=== PATIENT | male | born 1955 | race Caucasian/White ===

== ENCOUNTER → 2017-04-25 | Outpatient (CLI) | payer OTHER ==
[~2017-04-25] MED LIST: ASPI-496 PO; ASPI-621 PO; FURO-93 PO; FURO80TA3 PO; HYDR-3241 PO; LISI1TAB5 PO; MELO15TA24 PO; METO25TA35 PO; NIAC500T35 PO; OMEP-110 PO; POTA20PA25 PO; POTA20TA6 PO; PRAV40TA2 PO; STATIN; TEST30SO PO
== END | disposition home or self-care (01) ==
LOC: CVU 09:54
PROVIDERS: ATTEND Internal Medicine Cardiovascular Disease
DX: I87.2 Venous insufficiency (chronic) (peripheral) (principal); L03.116 Cellulitis of left lower limb; L03.115 Cellulitis of right lower limb; L81.9 Disorder of pigmentation, unspecified
CPT/HCPCS: 93970

== ENCOUNTER 2017-08-18 07:14 | Day surgery (SDC) | payer OTHER ==
[~2017-08-18] VITALS: Ht 177.8 cm; Wt 122.7 kg
[~2017-08-18 07:14] MED LIST changes: +LIDOCAINE/MPF 2%-EPI 1:200K, 20 ML ONE
[2017-08-18 07:34] VITALS: BP 142/71
== END 2017-08-18 09:26 | disposition home or self-care (01) ==
LOC: CACL 07:14
PROVIDERS: ATTEND Internal Medicine Cardiovascular Disease
DX: I83.12 Varicose veins of left lower extremity with inflammation (principal); E78.2 Mixed hyperlipidemia; I10 Essential (primary) hypertension; E66.9 Obesity, unspecified; G47.33 Obstructive sleep apnea (adult) (pediatric); Z88.0 Allergy status to penicillin; Z91.018 Allergy to other foods
CPT/HCPCS: 36482; C1894; J3490

== ENCOUNTER → 2017-08-20 | Outpatient (CLI) | payer OTHER ==
[~2017-08-20] MED LIST changes: -LIDOCAINE/MPF 2%-EPI 1:200K, 20 ML ONE
== END ==
LOC: CVU 08:17
PROVIDERS: ATTEND Internal Medicine Cardiovascular Disease
DX: I87.2 Venous insufficiency (chronic) (peripheral) (principal); Z98.890 Other specified postprocedural states
CPT/HCPCS: 93971

== ENCOUNTER → 2018-01-16 | Outpatient (CLI) | payer OTHER | END | disposition home or self-care (01) | LOC: CVU 12:50 | PROVIDERS: ATTEND Physician Assistant | DX: I10 Essential (primary) hypertension (principal); G47.30 Sleep apnea, unspecified; Z88.1 Allergy status to other antibiotic agents; Z88.5 Allergy status to narcotic agent | CPT/HCPCS: 93306 ==

== ENCOUNTER 2019-05-14 14:15 | Outpatient (CLI) | payer OTHER ==
[~2019-05-14 14:15] MED LIST changes: -ASPI-621 PO; +ASPI81TA45 PO; +LISI1TAB19 PO; -LISI1TAB5 PO
[2019-05-14] MEDS ORDERED: TAMS-11 PO (14:56)
[2019-05-14] MEDS ORDERED: PRAV40TA2 PO (14:56)
[2019-05-14] MEDS ORDERED: FLUO20CA19 PO (14:56)
[2019-05-14] MEDS ORDERED: LISI1TAB20 PO (14:56)
[2019-05-14 15:37] LABS: ALANINE AMINOTRANSFERASE 48 U/L (12-78); ALBUMIN 4.2 g/dL (3.4-5.0); ANION GAP 7 mmol/L (5-15); CALCIUM 9.2 mg/dL (8.5-10.1); CHLORIDE 101 mmol/L (98-107)
[2019-05-14 15:40] LABS: ALKALINE PHOSPHATASE 26 U/L (45-117); BILIRUBIN,TOTAL 0.8 mg/dL (0.2-1.0); CREATININE 1.24 mg/dL (0.7-1.3); TOTAL PROTEIN 7.3 g/dL (6.4-8.2)
== END 2019-05-14 23:59 | disposition home or self-care (01) ==
LOC: STAR 14:15
PROVIDERS: ATTEND Surgery
DX: Z01.818 Encounter for other preprocedural examination (principal); K42.9 Umbilical hernia without obstruction or gangrene; I44.0 Atrioventricular block, first degree; Z88.0 Allergy status to penicillin
CPT/HCPCS: 36415; 80053; 93005

== ENCOUNTER 2019-05-18 10:53 | Day surgery (SDC) | payer OTHER ==
[~2019-05-18] VITALS: Ht 177.8 cm; Wt 123.0 kg
[~2019-05-18 10:53] MED LIST changes: +BUPIVACAINE/PF 0.5% ONE; +FLUO20CA19 PO; +LISI1TAB20 PO; +TAMS-11 PO
[2019-05-18] MEDS ORDERED: MIDAZOLAM 1 MG/ML, 2ML ONE (11:03)
[2019-05-18] MEDS ORDERED: FENTANYL PF 250 MCG/5ML ONE (11:03)
[2019-05-18 11:14] VITALS: BP 138/83
[2019-05-18] MEDS ORDERED: LACTATED RINGERS 1,000 ML IV SCH (11:20)
[2019-05-18] MEDS ORDERED: ACETAMINOPHEN 500 MG TABLET ONE (11:21)
[2019-05-18] MEDS ORDERED: GABAPENTIN 300 MG CAPSULE ONE (11:21)
[2019-05-18] MEDS ORDERED: GABAPENTIN 300 MG CAPSULE PO ONE ×2 (11:30)
[2019-05-18] MEDS ORDERED: ACETAMINOPHEN 500 MG TABLET PO ONE ×2 (11:30)
[2019-05-18] MEDS ORDERED: LIDOCAINE 2% 100MG/5ML SYRINGE ONE (11:57)
[2019-05-18] MEDS ORDERED: KETOROLAC 30 MG/1 ML ONE (11:57)
[2019-05-18] MEDS ORDERED: ONDANSETRON 2MG/ML, 2ML ONE (12:33)
[2019-05-18] MEDS ORDERED: PROPOFOL 10 MG/ML, 20ML ONE (12:33)
[2019-05-18] MEDS ORDERED: DEXAMETHASONE 4 MG/ML, 1ML ONE (12:33)
[2019-05-18] MEDS ORDERED: ROCURONIUM 10MG/ML,5ML ONE (12:33)
[2019-05-18] MEDS ORDERED: CEFAZOLIN 1,000 MG ONE (12:33)
[2019-05-18] MEDS ORDERED: NEOSTIGMINE 1 MG/ML, 10ML ONE (12:33)
[2019-05-18] MEDS ORDERED: GLYCOPYRROLATE 0.2MG/1ML, 5ML ONE (12:33)
[2019-05-18] MEDS ORDERED: SUGAMMADEX 200 MG/2 ML IVPush ONE ×2 (12:44)
[2019-05-18] MEDS ORDERED: HYDROmorphone 2 MG/ML, 1ML IVPush PRN (13:00)
[2019-05-18] MEDS ORDERED: ALBUTEROL/IPRATROPIUM 2.5MG/0.5MG, 3 ML NPPB PRN (13:00)
[2019-05-18] MEDS ORDERED: FENTANYL PF 100 MCG/2ML IV PRN (13:00)
[2019-05-18] MEDS ORDERED: METOPROLOL 1 MG/ML, 5ML IV PRN (13:00)
[2019-05-18] MEDS ORDERED: MEPERIDINE/PF 25MG/ML,1ML IVPush PRN (13:00)
[2019-05-18] MEDS ORDERED: hydrALAzine 20 MG/ML, 1ML IV PRN (13:00)
[2019-05-18] MEDS ORDERED: PROMETHAZINE 25 MG/ML, 1ML IV PRN (13:00)
[2019-05-18] MEDS ORDERED: OXYcodone 5 MG/5 ML ORAL.SOL UDC PO PRN ×2 (13:00)
[2019-05-18] MEDS ORDERED: MIDAZOLAM 1 MG/ML, 2ML IV PRN (13:00)
[2019-05-18] MEDS ORDERED: DIAZEPAM 5 MG/ML, 2ML IVPush PRN (13:00)
[2019-05-18] MEDS ORDERED: OXYcodone 5 MG/5 ML ORAL.SOL UDC ONE (13:27)
[2019-05-18] MEDS ORDERED: MEPERIDINE/PF 25MG/ML,1ML ONE (13:27)
== END 2019-05-18 17:30 | disposition home or self-care (01) ==
LOC: OUT 10:53
PROVIDERS: ATTEND Surgery
DX: K42.0 Umbilical hernia with obstruction, without gangrene (principal); G47.33 Obstructive sleep apnea (adult) (pediatric); I10 Essential (primary) hypertension; E78.5 Hyperlipidemia, unspecified; N40.0 Benign prostatic hyperplasia without lower urinary tract symptoms; G25.0 Essential tremor; E66.01 Morbid (severe) obesity due to excess calories; Z68.37 Body mass index [BMI] 37.0-37.9, adult; Z79.899 Other long term (current) drug therapy; Z88.0 Allergy status to penicillin; Z98.890 Other specified postprocedural states
CPT/HCPCS: 49653; C1781; J0690; J1100; J1885; J2175; J2405; J2704; J3010; J7120; S2900; J2250; J2710